=== PATIENT | female | born 1980 | race Caucasian/White ===

== ENCOUNTER 2016-11-08 17:43 | Emergency (ER) | payer BC ==
[~2016-11-08] VITALS: Ht 165.1 cm; Wt 57.8 kg
[~2016-11-08 17:43] MED LIST: ALBU1AER9 INH; CHOLCAP5 PO; CIPR-255 PO; FEXO1TAB49 PO; FLUT0.15 NAE
[2016-11-08 17:46] VITALS: TEMP 36.7; Ht 165.1 cm; Wt 57.8 kg
[2016-11-08] MEDS ORDERED: MoRPHine SULFATE 4 MG/ML 1 ML CARP\\VIAL IV STA (18:57)
[2016-11-08] MEDS ORDERED: ONDANSETRON INJ 2 MG/ML 2 ML VIAL IV STA (18:57)
[2016-11-08] MEDS ORDERED: SODIUM CHLORIDE 0.9% 1000ML 1,000 ML IV STA (18:57)
[2016-11-08 19:12] LABS: URINE APPEARANCE CLEAR (CLEAR); URINE BILIRUBIN NEG (NEG); URINE COLOR YELLOW; URINE NITRITE NEG (NEG); URINE PH 7.5 (4.5-7.5); URINE SPECIFIC GRAVITY 1.013 (1.000-1.030); UROBILINOGEN NEG (NEG)
[2016-11-08 19:20] LABS: BASO % 0.1 %; BASO ABS # 0.01 K/uL (0-0.2); COMPLETE YES; EOS % 2.1 %; HEMATOCRIT 38.5 % (37-47); IG% 0.3 %; LYMPH % 35.7 %; LYMPH ABS # 2.51 K/uL (1.2-3.4); MEAN CELL VOLUME 94.6 fL (80-100); MEAN CORPUSCULAR HEMOGLOBIN 33.4 pg (25-34); MEAN CORPUSCULAR HGB CONC 35.3 g/dl (32-36); MEAN PLATELET VOLUME 10.3 fL (7.4-10.4); MONO % 8.1 %; NEUT % 53.7 %; PLATELET COUNT 169 K/uL (130-400); RED BLOOD COUNT 4.07 M/uL (4.2-5.4); WHITE BLOOD COUNT 7.04 K/uL (4.8-10.8)
[2016-11-08 19:22] LABS: MANUAL MICROSCOPIC REQUIRED? NO; REVIEW REQ? NO
[2016-11-08 19:38] LABS: ALT/SGPT 25 U/L (12-78); BLOOD UREA NITROGEN 9 mg/dl (7-18); BUN/CREATININE RATIO 11.2 (10-20); CARBON DIOXIDE 30 mmol/L (21-32); CHLORIDE 105 mmol/L (98-107); CREATININE 0.81 mg/dl (0.60-1.20); GLUCOSE 93 mg/dl (70-99); POTASSIUM 3.8 mmol/L (3.5-5.1); SODIUM 141 mmol/L (136-145)
[2016-11-08 19:41] LABS: ALKALINE PHOSPHATASE 46 U/L (45-117); AST/SGOT 13 U/L (15-37)
--- NOTE | 2016-11-08 20:11 | DIAGNOSTIC IMAGING REPORT ---
CT OF THE ABDOMEN AND PELVIS WITHOUT CONTRAST, STONE PROTOCOL CLINICAL HISTORY: Right flank pain. Hematuria. COMPARISON STUDY: CT of the abdomen and pelvis January 07, 2016. TECHNIQUE: Helical axial images of the abdomen and pelvis were obtained without IV or oral contrast according to renal stone protocol. FINDINGS: Visualized portions of the lower lungs demonstrate trace effusions. No pneumatosis, free air or portal venous gas is present. There is no hydronephrosis or hydroureter. No renal calculi are identified. The course of the ureters is difficult to follow on this exam but no ureteral calculi are identified. Pelvic calcifications likely reflect phleboliths. Evaluation of the remainder of the abdomen and pelvis is suboptimal on this unenhanced exam. Unenhanced images of the liver, spleen, adrenal glands and pancreas are normal. There is no evidence for a bowel obstruction. The appendix is normal. There is no free fluid. There is no lymphadenopathy identified on this unenhanced exam. Skeletal structures are unremarkable. IMPRESSION: 1. No urinary calculi or hydronephrosis. 2. No acute process within the abdomen or pelvis on unenhanced exam. Normal appendix. Electronically signed by: Rakesh Church M.D. 11/08/2016 8:10 PM Dictated Date/Time: 11/08/2016 8:03 PM
[2016-11-08 20:35] VITALS: BP 99/66; PULSE 63; O2SAT 98
--- NOTE | 2016-11-09 23:02 | EMERGENCY ROOM VISIT NOTE ---
ED Visit Note First contact with patient: 18:27 Chief Complaint: Right flank pain. History of Present Illness: Ms. Grace is a 36 year-old white female who ambulates into the ED complaining of right flank pain. Historically patient reports history of infected ureter calculus and urinary tract infections. Patient reports her symptoms started approximately 2 weeks ago with lower abdominal pain. She reports this pain was constant but mild and then approximately 3 days ago the pain radiated around the abdomen into the suprapubic area. Since that time the pain has been constant. Then she reports she developed urinary tract symptoms with increased urinary frequency, urinary burning and feelings of incomplete voiding over the last 2 days and then yesterday she developed right flank pain. Since that time her flank pain has been constant. She describes her pain as a deep achy sensation. She rates her discomfort 5/10. The pain is nonradiating. She has not identified any aggravating or alleviating factors related to the pain. She has not taken any medications with her pain prior to arrival at the hospital. She continues to have urinary tract symptoms as well as chills and intermittent nausea without vomiting. Patient denies sweats, skin eruptions, skin color changes, upper respiratory tract symptoms, shortness of breath, chest pain, diarrhea, constipation, rectal bleeding, black/tarry stools, urinary symptoms, hematuria, vaginal bleeding, vaginal discharge. Review of Systems: As noted above in history of present illness. All body systems were reviewed and found to be negative as noted above. Past Medical History: Unspecific skin disorder, asthma, bronchitis, pneumonia, stomach ulcers, kidney stones, pyelonephritis, status post hysterectomy and balloon sinusplasty. Current Medications: Flonase, vitamin D 3. Allergies to Medications: IV contrast. Social History: Patient is currently employed; she lives with her and children and feels safe in her home environment; she denies tobacco and alcohol use. Physical Examination: Vital Signs: Date Time Temp Pulse Resp B/P Pulse Ox O2 Delivery O2 Flow Rate FiO2 11/08/16 20:35 63 18 99/66 98 11/08/16 19:16 73 18 110/79 100 Room Air 11/08/16 17:46 36.7 72 20 122/80 99 Room Air GENERAL: 36-year-old female in mild distress due to pain, nontoxic-appearing, afebrile and hemodynamically stable. NEUROLOGICAL: Awake, alert and oriented to person, place and time. Answering questions appropriately and following commands. Normal gait. Good hand eye coordination. SKIN: Warm, dry and pink. No soft tissue eruptions or trauma noted. HEENT: Atraumatic and normocephalic. PERRLA. Sclera white and conjunctiva pink. Oral cavity moist and pink. Pharynx is nonerythematous or edematous. Speech normal. No lymphadenopathy. Trachea midline. No jugular venous distention. BACK: No tenderness over the bony spine. Mild right sided CVA tenderness. THORAX: Lungs sounds are clear to auscultation and equal bilaterally with symmetrical chest wall. No wheezing, rales or rhonchi. No crepitus, tenderness , subcutaneous air or deformities noted. HEART: Regular rate and rhythm. No gallops, rubs or murmurs are appreciated. ABDOMEN: Flat and soft mild suprapubic tenderness.. Positive bowel sounds in all quadrants. No guarding, rigidity or organomegaly. EXTREMITIES: Moves all extremities well on command and with purpose. All distal neurovascular statuses are intact and equal bilaterally. ED Course: Patient is assessed as noted above. Laboratory Testing: Test 11/08/16 18:43 11/08/16 19:10 Range/Units Urine Color YELLOW Urine Appearance CLEAR CLEAR Urine pH 7.5 4.5-7.5 Urine Specific [place] 1.013 1.000-1.030 Urine Protein NEG NEG Urine Glucose (UA) NEG NEG Urine Ketones NEG NEG Urine Occult Blood NEG NEG Urine Nitrite NEG NEG Urine Bilirubin NEG NEG Urine Urobilinogen NEG NEG Urine Leukocyte Esterase NEG NEG White Blood Count 7.04 4.8-10.8 K/uL Red Blood Count 4.07 4.2-5.4 M/uL Hemoglobin 13.6 12.0-16.0 g/dL Hematocrit 38.5 37-47 % Mean Corpuscular Volume 94.6 80-100 fL Mean Corpuscular Hemoglobin 33.4 25-34 pg Mean Corpuscular Hemoglobin Concent 35.3 32-36 g/dl Platelet Count 169 130-400 K/uL Mean Platelet Volume 10.3 7.4-10.4 fL Neutrophils (%) (Auto) 53.7 % Lymphocytes (%) (Auto) 35.7 % Monocytes (%) (Auto) 8.1 % Eosinophils (%) (Auto) 2.1 % Basophils (%) (Auto) 0.1 % Neutrophils # (Auto) 3.78 1.4-6.5 K/uL Lymphocytes # (Auto) 2.51 1.2-3.4 K/uL Monocytes # (Auto) 0.57 0.11-0.59 K/uL Eosinophils # (Auto) 0.15 0-0.5 K/uL Basophils # (Auto) 0.01 0-0.2 K/uL RDW Standard Deviation 40.2 36.4-46.3 fL RDW Coefficient of Variation 11.8 11.5-14.5 % Immature Granulocyte % (Auto) 0.3 % Immature Granulocyte # (Auto) 0.02 0.00-0.02 K/uL Sodium Level 141 136-145 mmol/L Potassium Level 3.8 3.5-5.1 mmol/L Chloride Level 105 98-107 mmol/L Carbon Dioxide Level 30 21-32 mmol/L Anion Gap 6.0 3-11 mmol/L Blood Urea Nitrogen 9 7-18 mg/dl Creatinine 0.81 0.60-1.20 mg/dl Est Creatinine Clear Calc Drug Dose 85.6 ml/min Estimated GFR () 107.5 Estimated GFR (Non- 92.8 BUN/Creatinine Ratio 11.2 10-20 Random Glucose 93 70-99 mg/dl Calcium Level 9.0 8.5-10.1 mg/dl Total Bilirubin 0.3 0.2-1 mg/dl Direct Bilirubin < 0.1 0-0.2 mg/dl Aspartate Amino Transf (AST/SGOT) 13 15-37 U/L Alanine Aminotransferase (ALT/SGPT) 25 12-78 U/L Alkaline Phosphatase 46 45-117 U/L Total Protein 7.3 6.4-8.2 gm/dl Albumin 4.0 3.4-5.0 gm/dl Lipase 114 73-393 U/L Noncontrast Abdominal/Pelvic CT: Was read by the radiologist and reviewed by myself and shows no urinary calculi or hydronephrosis, no acute process within the abdomen or pelvis, normal-appearing appendix. Patient was hydrated with normal saline and she received morphine IV for her pain and 4 mg of Zofran IV. Patient was reassessed multiple times during her stay in the emergency department. Patient's case was reviewed with Dr. Swanson; we agreed on diagnostic approach, treatment, disposition and plan per Patient was educated about roger's findings and instructed on her treatment plan; she verbalizes understanding and agreement with this plan. Clinical Impression: Right flank pain. Urinary tract infection symptoms. Decision-Making: Initially my differential diagnosis I considered urinary calculus, pyelonephritis, pancreatitis, hepatitis, cholecystitis, musculoskeletal disorder and other causes. Disposition: Patient discharged home in stable condition accompanied by her ; prior to departure she was reassessed and subjectively reported she was pain-free. Plan: Patient was encouraged to use ibuprofen or acetaminophen as needed for pain. Patient was encouraged to stay well-hydrated. Patient was encouraged to follow-up with her PCP for recheck. Patient was encouraged return ED for worsening symptoms, fevers, vomiting, bloody stools or any new/concerning symptoms.
== END 2016-11-08 20:36 | disposition home or self-care (01) ==
LOC: C.EDB 17:44 → C.EDC 20:36
DX: R10.30 Lower abdominal pain, unspecified (principal); R35.0 Frequency of micturition; R30.0 Dysuria; Z87.440 Personal history of urinary (tract) infections; Z87.442 Personal history of urinary calculi; J45.909 Unspecified asthma, uncomplicated; Z87.01 Personal history of pneumonia (recurrent); Z90.710 Acquired absence of both cervix and uterus; Z79.899 Other long term (current) drug therapy